=== PATIENT | male | born 1985 ===

== ENCOUNTER 2017-01-29 06:20 | Day surgery (SDC) | payer OTHER ==
[2017-01-15 12:21] VITALS: BMI 23.7
[2017-01-29] MEDS ORDERED: Lidocaine 2% Inj (20ml) ONE (06:28)
[2017-01-29] MEDS ORDERED: Iodixanol 320 MG/ML 100 ML BOTTLE IV ONE (06:30)
[2017-01-29] MEDS ORDERED: Nitroglycerin 50mg in D5W 50 MG/250 ML BOTTLE IV ONE (06:30)
[2017-01-29] MEDS ORDERED: Iohexol 350mgl/ml 50 ML ONE (06:30)
[2017-01-29] MEDS ORDERED: Iodixanol 320 MG/ML 200 ML BOTTLE IV ONE (06:30)
[2017-01-29 06:45] LABS: ADD MANUAL DIFF? NO
[2017-01-29 06:56] LABS: BASO # 0.02 K/mm3 (0.0-2.0); BASO % 0.3 % (0.0-3.0); EOS # 0.1 (0.0-0.7); EOS % 1.8 % (1.5-5.0); GRAN # 3.65 (1.4-6.5); GRAN % 54.4 % (50.0-68.0); HEMATOCRIT 44.6 % (42.0-52.0); LYMPH # 2.5 (1.2-3.4); LYMPH % 36.5 % (22.0-35.0); MEAN CELL VOLUME 79.8 fL (80.0-105.0); MEAN CORPUSCULAR HEMOGLOBIN 27.9 pg (25.0-35.0); MONO # 0.5 (0.1-0.6); PLATELET COUNT 208 10^3/uL (120.0-450.0); RED CELL DISTRIBUTION WIDTH 12.9 % (11.5-14.5); WHITE BLOOD COUNT 6.7 10^3/ul (4.5-11.0)
[2017-01-29 07:00] LABS: BLOOD UREA NITROGEN 14 mg/dL (7-21); CALCIUM 9.6 mg/dL (8.4-10.5); CARBON DIOXIDE 26 mmol/L (21-33); CHLORIDE 104 mmol/L (98-107); CHOLESTEROL 191 mg/dL (130-200); GFR AFRICAN-AMERICAN > 60; GLUCOSE,RANDOM 178 mg/dL (70-110); POTASSIUM 4.3 mmol/L (3.6-5.0); SODIUM 140 mmol/L (132-148)
[2017-01-29 07:02] LABS: INR 0.95 (0.93-1.08); PARTIAL THROMBOPLASTIN TIME 26.4 Seconds (23.7-30.8)
[2017-01-29] MEDS ORDERED: Midazolam 2 MG/2 ML VIAL ONE ×2 (07:13→08:25)
--- NOTE | 2017-01-29 08:06 | HP ---
REASON FOR ADMISSION: Left heart cath, possible angioplasty, abnormal stress test. BRIEF CLINICAL HISTORY: This is a 31-year-old male, mild obesity with past medical history of diabet es, ____, hyperlipidemia, complaining of chest pain, underwent a stress test that was abnormal, so phu robertson is scheduled for elective cardiac cath and possible angioplasty. PAST MEDICAL HISTORY: Significant for diabetes many years, ____, hyperlipidemia, chest pain. SOCIAL HISTORY: Denies any history of alcohol abuse. MOST RECENT CARDIAC WORKUP: As follows: The patient underwent a stress test. The patient walked on the treadmill 10 minutes and 39 seconds, Flynn protocol. The patient was stopped, 100% achieved pre dicted rate; 0-[address] depression in II, III, aVF was noted. But nuclear scan shows partially revers ible anteroseptal defect suspicious for ischemia, fixed defect inferior secondary to diaphragmatic at tenuation. In addition to that, patient had echocardiography dated 12/31/2016 that shows normal donna yosvany size, ejection fraction 50-55%, trace MR, ____ TR, RV systolic pressure at 22. Stress test dated 12/31/2016. CURRENT MEDICATIONS: The patient is taking insulin 20 units subcutaneous q.a.m., atorvastatin 10 mg daily, aspirin 81 mg daily. REVIEW OF SYSTEMS: As per HPI. PHYSICAL EXAMINATION: VITAL SIGNS: Height of the patient 5 feet 11, weight of the patient 170 pounds, body mass index 23.7 kg/m2. Blood pressure 120/75. HEENT: PERRLA. Extraocular muscles intact. NECK: Supple. No carotid bruits or thyromegaly. CHEST: Clear to auscultation. HEART: S1, S2 regular. ABDOMEN: Soft. EXTREMITIES: Clubbing and cyanosis negative. BLOOD WORKUP: Pending. IMPRESSION: Abnormal stress test suspicious for ischemia, ____ tricuspid regurgitation, right ventri cular systolic pressure 27, ____ tricuspid regurgitation, trace mitral regurgitation, diabetes, ____, multiple risk factors for coronary artery disease, chest pain. Suggest cardiac catheterization. The patient agreed. Will proceed for cardiac catheterization. Guru l give 300 of Plavix, 325 of aspirin. Risks, benefits, alternatives explained to the patient. The p atient agreed. Family agreed. Will proceed for cardiac catheterization. Further recommendation aft er cardiac catheterization. Thank you, Dr. Rivas, for providing us the opportunity in taking care of the patient. Faizan Amador MD cc:Faizan Rivas MD 305 TT: 01/29/2017 07:20:22 mn
[2017-01-29] MEDS ORDERED: Eptifibatide 20 mg/10mL Inj IVP ONE (08:10)
[2017-01-29] MEDS ORDERED: Sodium Chloride 0.9% 1,000 ML IV SCH (09:30)
[2017-01-29] MEDS ORDERED: Insulin Human NPH/Reg 70/30 Vial(3 ml) SC SCH (10:00)
[2017-01-29] MEDS: Oxycodone/Acetaminophen 5/325 mg Tab PO PRN ×2 (10:36→16:51)
[2017-01-29 10:55] VITALS: TEMP 97.7
[2017-01-29 12:40] LABS: ADD MANUAL DIFF? NO
[2017-01-29 12:41] LABS: BASO # 0.01 K/mm3 (0.0-2.0); BASO % 0.1 % (0.0-3.0); EOS # 0.1 (0.0-0.7); EOS % 1.2 % (1.5-5.0); GRAN # 4.41 (1.4-6.5); GRAN % 64.4 % (50.0-68.0); HEMATOCRIT 42.5 % (42.0-52.0); LYMPH % 28.8 % (22.0-35.0); MEAN CELL VOLUME 79.6 fL (80.0-105.0); MEAN CORPUSCULAR HEMOGLOBIN 28.3 pg (25.0-35.0); MEAN CORPUSCULAR HGB CONC 35.5 g/dl (31.0-37.0); MEAN PLATELET VOLUME 13.3 fl (7.0-11.0); MONO # 0.4 (0.1-0.6); MONO % 5.5 % (1.0-6.0); PLATELET COUNT 197 10^3/uL (120.0-450.0); RED CELL DISTRIBUTION WIDTH 12.9 % (11.5-14.5); WHITE BLOOD COUNT 6.9 10^3/ul (4.5-11.0)
[2017-01-29 12:51] LABS: BLOOD UREA NITROGEN 13 mg/dL (7-21); CALCIUM 9.1 mg/dL (8.4-10.5); CARBON DIOXIDE 25 mmol/L (21-33); CHLORIDE 103 mmol/L (98-107); GFR AFRICAN-AMERICAN > 60; GLUCOSE,RANDOM 186 mg/dL (70-110); POTASSIUM 3.6 mmol/L (3.6-5.0); SODIUM 138 mmol/L (132-148)
[2017-01-29] MEDS: Insulin Reg-LOW-Coverage SC SCH ×2 (12:54→17:02)
[2017-01-29 13:48] VITALS: O2SAT 98
[2017-01-29] MEDS ORDERED: Bacitracin 500 Units/gm Oint Foilpak UD ONE (13:49)
[2017-01-29] MEDS ORDERED: Bacitracin 500 Units/gm Oint Foilpak UD TOP ONE (13:52)
--- NOTE | 2017-01-29 15:15 | CARD ---
APPROVED REPORT EKG Measurement Heart [id number] <Conclusion> Normal sinus rhythm with sinus arrhythmia Normal ECG
[2017-01-29 15:16] VITALS: BP 139/74; PULSE 71; RESP 18
--- NOTE | 2017-01-29 15:33 | CARD ---
APPROVED REPORT Procedure(s) performed: Left Heart Catheterization PTCA with Balloon Angioplasty of Circumflex HISTORY The patient is a 31 year-old male with a history of : most recent EF: 65%. (EF Method: RADIONUCLIDE), diabetes mellitus with insulin treatment , dyslipidemia , Chest pain and abnormal stress test. INDICATION The indication(s) include : positive stress test. CASE TECHNIQUE The patient was brought electively to the Cardiac Catheterization Laboratory in a fasting state and was prepped and draped in a sterile manner. The left wrist was infiltrated with 2% Lidocaine subcutaneous anesthesia. A sheath was inserted into the left radial artery without difficulty. Coronary angiography was performed using coronary diagnostic catheters. The left coronary system was accessed and visualized with a Diagnostic ,5 Fr JL 3.5 catheter. The right coronary system was accessed and visualized with a Diagnostic ,5 Fr JR 4 catheter. The left ventricle was accessed and visualized with a 5 Fr Pigtail 145 (Angled) catheter. Closure device was deployed with a 6 Fr Angio-Seal without any complications. The patient tolerated the procedure well and there were no complications associated with the procedure. cardiac cath done from left radial arter but PTCA of Cx could not be done b/c smallest guider cather was unable to engage left main so RFA access was obtained and Xb 3.0 guide catheter used to engage Left main., for PTCA of Cx, and TR band used for Radial arery and Angioseal used for RFA, closing device Vessel Analysis The patient's coronary anatomy is co-dominant. The left main coronary artery is a medium size vessel without significant stenosis. The left main bifurcates to the left anterior descending and circumflex. The left anterior descending artery is a medium size vessel with intimal irregularities. The first diagonal branch is a medium size vessel with diffuse calcification noted throughout this vessel and without significant stenosis. The second diagonal branch is a medium size vessel with diffuse calcification noted throughout this vessel and without significant stenosis. The circumflex artery is a medium size vessel with diffuse calcification noted throughout this vessel and with significant stenosis. There is a 80-90% stenosis in the distal segment. distal Cx continued into LPDA The first obtuse marginal branch is a large size vessel with diffuse calcification noted throughout this vessel and without significant stenosis. The left posterior descending artery is a medium size vessel with diffuse calcification noted throughout this vessel and with significant stenosis. There is a 80-90% stenosis in the ostial segment. Continued from Distal Cx The right coronary artery is a large size vessel with intimal irregularities. The right posterior descending artery is a medium size vessel with diffuse calcification noted throughout this vessel and without significant stenosis. The right posterolateral branch is a medium size vessel with diffuse calcification noted throughout this vessel and without significant stenosis. Left Ventricle The left ventricle is normal in size with normal contractility. There was no cardiomyopathy. The left ventricular ejection fraction is estimated to be 65%. The left ventricular end diastolic pressure is 15 mmHg. There was no gradient across the aortic valve upon pullback. PCI Technique Lesion Anticoagulation was achieved with Heparin. Percutaneous coronary intervention was performed on the distal circumflex artery segment continued into Proximal L PDA ( Ostial). The lesion stenosis prior to intervention was 80-90% with MARIAH 2 flow. A 6 Fr XB 3 Guide Catheter was used to engage the ostium. BALLOON DILATION A Balloon catheter 2.0 x 8 mm Mini Trek RX was inserted and inflated up to 6.00atm for 75seconds. Multiple baloon inflation into Distal Cx and proximal LPDA. Final angiography reveals 0 % stenosis with MARIAH 3 flow. Conclusion Single Vessel CAD limited to Distal Cx and Proximal ( Ostial) L PDA Heavy atherosclerotic Dennis noted in all coronaries. Preserved LV FX. EF-65%, EDP-15. Successful PTCA (POBA )done. POBA was opted rather than stent B/c small calibre vessel approx 2mmm vessel, high rate of restenosis with small calibre vessel and long lesion. Recommendations Cardiac Rehabilitation Referral Aggressive Medical TherapyCardiac Risk Reduction Program Babay ASA and Plavix daily for four weeks followed by baby ASA alone. Cc; Dr. Rivas / Michelle
[2017-01-29] MEDS ORDERED: Potassium Chloride 20 mEq ER Tab PO ONE (16:08)
== END 2017-01-29 19:11 | disposition home or self-care (01) ==
LOC: CATH 06:20 → 2RSO 09:29 → CATH 19:11
PROVIDERS: ATTEND Internal Medicine Cardiovascular Disease
DX: I25.10 Atherosclerotic heart disease of native coronary artery without angina pectoris (principal); E78.5 Hyperlipidemia, unspecified; E11.9 Type 2 diabetes mellitus without complications; Z79.4 Long term (current) use of insulin; Z79.82 Long term (current) use of aspirin
CPT/HCPCS: 36415; 80048; 80061; 82948; 85025; 85175; 85610; 85730; 86850; 86900; 92920; 93005; 93458; 99152; 99153; C1725; C1760; C1769 ×3; C1887 ×4; C2629; J1327; J1644 ×2; J2250; J3010; J7030; J7040; Q9967